=== PATIENT | female | born 1975 | race Caucasian/White ===

== ENCOUNTER 2020-09-26 01:23 | Emergency (ER) | payer BC ==
[~2020-09-26] VITALS: Ht 134.6 cm; Wt 113.6 kg
[~2020-09-26 01:23] MED LIST: ALBU2.5V8 INH; BENZ100C PO; FAMO-63 PO; HYDR-3164 PO; MAG355OR11 PO; NAPR-683 PO; ONDA4TAB7 PO; PRED50TA PO; VENTOLIN HFA18 GM INH
[2020-09-26] MEDS ORDERED: LIDO:MAALOX 1:1 20 ML SINGLE DOSE. SWSW ONE (02:00)
[2020-09-26 02:35] LABS: BARBITURATES NEG (NEG); BENZODIAZEPINES NEG (NEG); CANNABINOIDS NEG (NEG); COCAINE NEG (NEG); METHADONE NEG (NEG); OPIATES NEG (NEG); PHENCYCLIDINE NEG (NEG)
[2020-09-26 02:53] LABS: AMPHETAMINE/METHAMPHETAMINE NEG (NEG)
[2020-09-26 02:58] LABS: BASO % 1 % (0-3); EOS % 1 % (0-3); HEMATOCRIT 32.6 % (36.0-47.0); HEMOGLOBIN 10.5 g/dL (12.0-15.5); LYMPH # 1.4 x10^3/uL (1.0-4.8); LYMPH % 20 % (24-48); MEAN CORPUSCULAR HEMOGLOBIN 25 pg (25-35); MEAN CORPUSCULAR HGB CONC 32 g/dL (31-37); MEAN CORPUSCULAR VOLUME 76 fL (79-100); MONO # 0.6 x10^3/uL (0.0-1.1); MONO % 8 % (0-9); NEUT # 4.9 x10^3/uL (1.8-7.7); NEUT % 71 % (31-73); PLATELET COUNT 318 x10^3/uL (140-400); RED BLOOD COUNT 4.28 x10^6/uL (3.50-5.40); WHITE BLOOD COUNT 6.9 x10^3/uL (4.0-11.0)
--- NOTE | 2020-09-26 03:12 | RAD ---
Single view chest dated 09/26/2020. Comparison made to 11/29/2018. Clinical data indication: Heartburn. FINDINGS: Single upright portable exam performed. Heart and mediastinal contours are stable. There is some mild prominent reticular nodular markings at the perihilar regions, somewhat stable. No consolidation or pleural effusion. No pneumothorax. IMPRESSION: 1. No acute radiographic abnormality. Stable findings compared to November 29, 2018. Electronically signed by: Evin Batista MD (09/26/2020 3:10 AM) JARON
[2020-09-26 03:13] LABS: PREG TEST PT QUAL NEGATIVE (NEG)
[2020-09-26 03:14] LABS: CALCIUM 8.6 mg/dL (8.5-10.1); CREATININE 0.7 mg/dL (0.6-1.0); GFR 90.1; POTASSIUM 3.9 mmol/L (3.5-5.1)
[2020-09-26 03:20] LABS: ALBUMIN 3.2 g/dL (3.4-5.0); ALBUMIN/GLOBULIN RATIO 0.9 (1.0-1.7); TOTAL BILIRUBIN 0.2 mg/dL (0.2-1.0); TOTAL PROTEIN 6.6 g/dL (6.4-8.2)
--- NOTE | 2020-09-26 03:23 | EKG ---
[facility] [address] [place] [address] Test Date: 2020-09-26 Test Time: 01:36:56 Pat Name: SANDRA BOO Department: Room: Gender: F Motor Boss: : 1975 Requested By: JARRETT SLAUGHTER Order Number: [id number] Reading MD: Measurements Intervals [place] Rate: 74 P: 34 NE: 148 QRS: 28 QRSD: 84 T: 26 QT: 386 QTc: 434 Interpretive Statements SINUS RHYTHM NO SPECIFIC ECG ABNORMALITIES RI6.01 No previous ECG available for comparison
--- NOTE | 2020-09-26 03:43 | PHYS DOC ---
Past Medical History Past Medical History: Anemia, Asthma, GERD Additional Past Medical Histor: COVID 19 Past Surgical History: , Other Additional Past Surgical Histo: Pt. poor historian, reports having gallbladder out, unsure of appendix Smoking Status: Never Smoker Alcohol Use: None Drug Use: None General Adult EDM: Chief Complaint: CHEST PAIN HPI: HPI: 45-year-old female past medical history significant for hypertension, Covid (headache and fever), with recent diagnosis of anemia and hyperlipidemia 1 week ago with primary care physician ([facility]-no new medications), presents to the ED with complaints of "acid burning pain," that moves from the top of her stomach up to her throat stating she needs to clear her throat and when she does this feels as if she has some shortness of breath. Patient states symptoms started around 11 PM, last meal was chicken around 5 PM. States she has the symptoms approximately two times per year starting in 2018 and states "whenever I come here," she gets medicine for "heartburn." Patient unsure what this medication is. No known history of GI bleed, no history of EGD. [place] Denies any alcohol or drug use. Denies any past surgical history but then states "vesicula" surgery (points to scar in upper abdomen). Daughter present in ED and is translating for patient who was offered but declined meteorological equipment repairer services. Patient's last bowel movement was around 1 PM today, reports green in color. Denies any new medications. Is not on any anticoagulants. No personal or family history of aortic aneurysms or dissections, cardiac arrhythmias, CAD, sudden or unexplainable (under 50 years of age), or clotting disorders. Review of Systems: Review of Systems: Constitutional: Denies fever or chills. [] Eyes: Denies change in visual acuity. [] HENT: Denies nasal congestion or sore throat. [] Respiratory: Denies cough or shortness of breath. [] Cardiovascular: Denies chest pain or edema. [] GI: Denies abdominal pain, nausea, vomiting, bloody stools or diarrhea. [] : Denies dysuria. [] Musculoskeletal: Denies back pain or joint pain. [] Integument: Denies rash. [] Neurologic: Denies headache, focal weakness or sensory changes. [] Endocrine: Denies polyuria or polydipsia. [] Lymphatic: Denies swollen glands. [] Psychiatric: Denies depression or anxiety. [] Heart Score: C/O Chest Pain: Yes HEART Score for Chest Pain: HEART Score for Chest Pain Response (Comments) Value History Slighlty/Non-Suspicious 0 ECG Normal 0 Age >45 - < 65 1 Risk Factors >3 Risk Factors or Hx CAD 2 Troponin < Normal Limit 0 Total 3 Risk Factors: Risk Factors: DM, Current or recent (<one month) smoker, HTN, HLP, family history of CAD, obesity. Risk Scores: Score 0 - 3: 2.5% MACE over next 6 weeks - Discharge Home Score 4 - 6: 20.3% MACE over next 6 weeks - Admit for Clinical Observation Score 7 - 10: 72.7% MACE over next 6 weeks - Early Invasive Strategies Current Medications: Current Medications Medications (Trade) Dose Ordered Sig/Anamika Start Time Stop Time Status Last Admin Dose Admin Multi-Ingredient Mouthwash/Gargle (Gi Cocktail) 20 ml 1X ONCE 09/26/20 02:00 09/26/20 02:01 DC 09/26/20 02:26 20 ML Allergies: Allergies: Allergies Coded Allergies Type Severity Reaction Last Updated Verified No Known Drug Allergies 10/07/19 No Physical Exam: PE: Constitutional: Well developed, well nourished, no acute distress-calm, non- toxic appearance. HENT: Normocephalic, atraumatic, Eyes: EOMI, conjunctiva normal, no discharge. Neck: Normal range of motion, supple, Cardiovascular: S1/2 present, regular rhythm Lungs & Thorax: Speaking in full sentences, bilateral equal chest rise, no tachypnea or increased work of breathing Abdomen: soft, obese, no tenderness, no reproducible pain, no Guadarrama sign, no rigidity or guarding, no peritonitis, no pain McBurney's point, no Rovsing, 2cm epigastric scar (moved in location due to habitus?-suspect cholecystectomy) Skin: Warm, dry, no erythema, no rash. [] Back: No tenderness, no CVA tenderness. [] Extremities: No tenderness, no cyanosis, no lower extremity edema Neurologic: Alert and oriented X 3, normal motor function, normal sensory function, no focal deficits noted. [] Psychologic: Affect normal, judgement normal, mood normal. [] Current Patient Data: Labs: Laboratory Tests Test 09/26/20 02:10 09/26/20 02:22 09/26/20 02:43 Urine Opiates Screen Neg (NEG) Urine Methadone Screen Neg (NEG) Urine Barbiturates Neg (NEG) Urine Phencyclidine Screen Neg (NEG) Urine Amphetamine/Methamphetamine Neg (NEG) Urine Benzodiazepines Screen Neg (NEG) Urine Cocaine Screen Neg (NEG) Urine Cannabinoids Screen Neg (NEG) Urine Ethyl Alcohol Neg (NEG) POC Urine HCG, Qualitative Hcg negative (Negative) White Blood Count 6.9 x10^3/uL (4.0-11.0) Red Blood Count 4.28 x10^6/uL (3.50-5.40) Hemoglobin 10.5 g/dL (12.0-15.5) L Hematocrit 32.6 % (36.0-47.0) L Mean Corpuscular Volume 76 fL (79-100) L Mean Corpuscular Hemoglobin 25 pg (25-35) Mean Corpuscular Hemoglobin Concent 32 g/dL (31-37) Red Cell Distribution Width 19.0 % (11.5-14.5) H Platelet Count 318 x10^3/uL (140-400) Neutrophils (%) (Auto) 71 % (31-73) Lymphocytes (%) (Auto) 20 % (24-48) L Monocytes (%) (Auto) 8 % (0-9) Eosinophils (%) (Auto) 1 % (0-3) Basophils (%) (Auto) 1 % (0-3) Neutrophils # (Auto) 4.9 x10^3/uL (1.8-7.7) Lymphocytes # (Auto) 1.4 x10^3/uL (1.0-4.8) Monocytes # (Auto) 0.6 x10^3/uL (0.0-1.1) Eosinophils # (Auto) 0.0 x10^3/uL (0.0-0.7) Basophils # (Auto) 0.0 x10^3/uL (0.0-0.2) Sodium Level 144 mmol/L (136-145) Potassium Level 3.9 mmol/L (3.5-5.1) Chloride Level 108 mmol/L (98-107) H Carbon Dioxide Level 27 mmol/L (21-32) Anion Gap 9 (6-14) Blood Urea Nitrogen 16 mg/dL (7-20) Creatinine 0.7 mg/dL (0.6-1.0) Estimated GFR (Cockcroft-Gault) 90.1 BUN/Creatinine Ratio 23 (6-20) H Glucose Level 111 mg/dL (70-99) H Calcium Level 8.6 mg/dL (8.5-10.1) Total Bilirubin 0.2 mg/dL (0.2-1.0) Aspartate Amino Transferase (AST) 15 U/L (15-37) Alanine Aminotransferase (ALT) 20 U/L (14-59) Alkaline Phosphatase 72 U/L (46-116) Troponin I Quantitative < 0.017 ng/mL (0.000-0.055) PV-Hjn-V-Type Natriuretic Peptide 23 pg/mL (0-124) Total Protein 6.6 g/dL (6.4-8.2) Albumin 3.2 g/dL (3.4-5.0) L Albumin/Globulin Ratio 0.9 (1.0-1.7) L Serum Test, Qualitative Negative (NEG) Laboratory Tests 09/26/20 02:43 Laboratory Tests 09/26/20 02:43 Vital Signs: Vital Signs Date Time Temp Pulse Resp B/P (MAP) Pulse Ox O2 Delivery O2 Flow Rate FiO2 09/26/20 02:10 98.2 89 16 138/77 (97) 99 Room Air 98.2 EKG: EKG: Sinus rhythm at 74 bpm, no axis deviation, normal intervals, S1Q3T3 present, no ST elevations or ST depressions Radiology/Procedures: Radiology/Procedures: IMAGING REPORT Signed PATIENT: SANDRA BOO ACCOUNT: [id number] : 1975 LOCATION: ER AGE: 45 SEX: F EXAM STATUS: PRE ER ORD. PHYSICIAN: JARRETT SLAUGHTER DO REASON: heartburn? er#16 PROCEDURE: PORTABLE CHEST 1V Single view chest dated 09/26/2020. Comparison made to 11/29/2018. Clinical data indication: Heartburn. FINDINGS: Single upright portable exam performed. Heart and mediastinal contours are stable. There is some mild prominent reticular nodular markings at the perihilar regions, somewhat stable. No consolidation or pleural effusion. No pneumothorax. IMPRESSION: 1. No acute radiographic abnormality. Stable findings compared to November 29, 2018. Electronically signed by: Evin Batista MD (09/26/2020 3:10 AM) [facility] – [place] DICTATED and SIGNED BY: EVIN BATISTA MD DATE: 09/26/20 [id number] Impression: PERC rule for pulmonary embolus 0 criteria No need for further workup, as <2% chance of PE. If no criteria are positive and clinicians pre-test probability is <15%, PERC Rule criteria are satisfied (covid was 08/2019 > 1 year ago) Course & Med Decision Making: Course & Med Decision Making Pertinent Labs and Imaging studies reviewed. (See chart for details) Concern for atypical chest pain, suspect gastritis. EMR was reviewed and patient was last seen in ED for this in 2018. Patient low risk for mace, 2 troponins negative, D-dimer within normal limits. BP in normal limits w/no end organ damage. CXR with normal contours, stable, no acute process. Patient is calm with improvement in symptoms after GI cocktail. Patient is in no distress. Will discharge home with strict ED return precautions were given for syncope, severe or sudden onset chest pain or back pain, hemoptysis, neurologic deficits, vomiting blood or black stools. Encouraged urgent outpatient follow-up with PMD and cardiology and GI for nonemergent outpatient evaluations. Life-threatening processes were considered but are low suspicion at this time, given history, physical exam and ED workup. Pt was educated on all prescription medications and adverse effects. All patient's questions were answered and pt was stable at time of discharge. Life/limb-threatening differential includes but is not limited to, acute myocardial infarction, aortic dissection, congestive heart failure, esophageal injury including rupture, surgical abdomen, arrhythmia, cardiomyopathy, myocarditis, pericarditis, peptic ulcer disease, pneumomediastinum, pneumonia, pneumothorax, pulmonary embolus, unstable angina, rib fracture, contusion, pericardial tamponade or effusion, traumatic injury including mediastinal hemorrhage or hematoma, or pulmonary contusion. I spoken with the patient and her caregivers. I explained the patient's condition, diagnoses and treatment plan based on the information available to me at this time. I have answered the patient and her caregiver's questions and addressed any concerns. The patient and her caregivers have a good understanding of patient's diagnosis, condition and treatment plan as can be expected at this point. Vital signs have been stable. Patient's condition is stable and appropriate for discharge from the emergency department. Patient will pursue further outpatient evaluation with primary care physician or other designated or consulting physician as outlined in the discharge instructions. The patient and/or caregivers are agreeable to this plan of care and follow-up instructions have been explained in detail. The patient and/or caregivers have received these instructions in written form and have expressed an understanding of the discharge instructions. The patient and/or caregivers are aware that any significant change of condition or worsening of symptoms should prompt immediate return to this or the closest emergency department or call to 1. Sandy Disclaimer: [employer] Disclaimer: This electronic medical record was generated, in whole or in part, using a voice recognition dictation system. Departure Departure Impression: Primary Impression: Atypical chest pain Disposition: HOME / SELF CARE / HOMELESS Condition: STABLE Referrals: UNKNOWN PCP NAME (PCP) you pcp in 24- 48 hours OR FOLLOW UP WITH FAMILY MEDICINE: Family Medicine Address: [address] [facility] [address] [place] [address] Patient Instructions: Chest Pain (Nonspecific), Gastritis, Adult Additional Instructions: FOLLOW UP WITH CARDIOLOGY: For nonemergent outpatient cardiology evaluation [facility] Address: [address] [address] AND FOLLOW UP WITH GASTROENTEROLOGY: For EGD and evaluation for gastritis Gastroenterology [facility] Address: [address] [place] [address] EMERGENCY DEPARTMENT GENERAL DISCHARGE INSTRUCTIONS Thank you for coming to [facility] Emergency Department (ED) today and trusting us with you care. We trust that you had a positive experience in our Emergency Department. If you wish to speak to the department management, you may call the Director at [phone]. YOUR FOLLOW UP INSTRUCTIONS ARE FOLLOWS: 1. Do you have a private Doctor? If you do not have a private doctor, please ask for a resource list of physicians or clinics that may be able to assist you with follow up care. 2. The Emergency Physicain has interpreted your x-rays. The X-Ray specialist will also review them. If there is a change in the findings, you will be notified in 48 hours when at all possible. 3. A lab test or culture has been done, your results will be reviewed and you will be notified if you need a change in treatment. ADDITIONAL INSTRUCTIONS AND INFORMATION: 1. Your care today has been supervised by a physician who is specially trained in emergency care. Many problems require more than one evaluation for a complete diagnosis and treatment. We recommend that you schedule your follow up appointment as recommended to ensure complete treatment of you illness or injury. If you are unable to obtain follow up care and continue to have a problem, or if your condition worsens, we recommend that you return to the ED. 2. We are not able to safely determine your condition over the phone nor are we able to give sound medical advice over the phone. For these safety reasons, if you call for medical advice we will ask you to come to the ED for further evaluation. 3. If you have any questions regarding these discharge instructions please call the ED at [phone]. SAFETY INFORMATION: In the interest of safety, wellness, and injury prevention; we encourage you to wear your sealbelt, if you smoke; quite smoking, and we encourage family to use a protective helmet for bicycling and other sporting events that present an increased risk for head injury. IF YOUR SYMPTOMS WORSEN OR NEW SYMPTOMS DEVELOP, OR YOU HAVE CONCERNS ABOUT YOUR CONDITION; OR IF YOUR CONDITION WORSENS WHILE YOU ARE WAITING FOR YOUR FOLLOW UP APPOINTMENT; EITHER CONTACT YOUR PRIMARY CARE DOCTOR, THE PHYSICIAN WHOSE NAME AND NUMBER YOU WERE GIVEN, OR RETURN TO THE ED IMMEDIATELY. Scripts Famotidine (PEPCID) 20 Mg Tablet 20 MG PO BID, #30 TAB Prov: JARRETT SLAUGHTER DO 09/26/20 JARRETT SLAUGHTER DO Sep 26, 2020 03:43
[2020-09-26] MEDS ORDERED: FAMO-63 PO (05:03)
[2020-09-26 06:09] VITALS: BP 145/66
== END 2020-09-26 06:12 | disposition home or self-care (01) ==
LOC: ER 01:23
DX: R07.89 Other chest pain (principal); R06.02 Shortness of breath; R50.9 Fever, unspecified; D64.9 Anemia, unspecified; K21.9 Gastro-esophageal reflux disease without esophagitis; J45.909 Unspecified asthma, uncomplicated; Z98.890 Other specified postprocedural states
CPT/HCPCS: 36415; 71045; 80053; 80307; 81025; 83880; 84484; 84703; 85025; 85379; 93005; 99285

== ENCOUNTER 2021-06-15 21:15 | Emergency (ER) | payer SELFPAY ==
[~2021-06-15] VITALS: Ht 149.9 cm; Wt 113.6 kg
[2021-06-15 21:45] VITALS: BP 133/66
[2021-06-15] MEDS ORDERED: PRED20TA PO (22:29)
[2021-06-15] MEDS ORDERED: FAMO-63 PO (22:29)
--- NOTE | 2021-06-15 22:29 | PHYS DOC ---
Past Medical History Past Medical History: Anemia, Asthma, GERD Additional Past Medical Histor: COVID 19 pneumonia Past Surgical History: , Other Additional Past Surgical Histo: Pt. salvador historian, reports having gallbladder out, unsure of appendix Smoking Status: Never Smoker Alcohol Use: None Drug Use: None General Adult EDM: Chief Complaint: ALLERGIC REACTION HPI: HPI: Ms. Pinon is a 46 yo female with PMH of HTN currently on lisinopril who presents to the ED for allergic reaction. Patient's daughter was in the room acting as a political science instructor from [place] to [place]. Patient states at that around 6pm she was eating dinner and 20 minutes later she started developing hives and a swollen upper lip along with rashes in the forearm and chest region. As time progressed the hives increased in size and she experienced difficulty breathing. To alleviate her symptoms, she took one Benadryl pill around 8pm with improvement of her breathing symptoms. In addition, patient is a residential user of lisinopril and has never experienced any side effects as a result of the medication. Review of Systems: Review of Systems: Constitutional: Denies fever or chills Eyes: Denies redness or eye pain HENT: Denies nasal congestion or sore throat Respiratory: Denies cough, endorsing difficulty breathing Cardiovascular: Denies chest pain or palpitations GI: Denies abdominal pain, nausea, or vomiting : Denies dysuria or hematuria Musculoskeletal: Denies back pain or joint pain Integument: Endorses rash or skin lesions including hives Neurologic: Denies headache, focal weakness or sensory changes Complete systems were reviewed and found to be within normal limits, except as documented in this note. Heart Score: C/O Chest Pain: N/A Current Medications: Current Medications Medications (Trade) Dose Ordered Sig/Anamika Start Time Stop Time Status Last Admin Dose Admin Dexamethasone Sodium Phosphate (Decadron) 10 mg 1X ONCE 06/15/21 23:00 06/15/21 23:01 Diphenhydramine HCl (Benadryl) 25 mg 1X ONCE 06/15/21 23:00 06/15/21 23:01 Famotidine (Pepcid) 20 mg 1X ONCE 06/15/21 23:00 06/15/21 23:01 Allergies: Allergies: Allergies Coded Allergies Type Severity Reaction Last Updated Verified No Known Drug Allergies 5/5/20 No Physical Exam: PE: Constitutional: Well developed, well nourished, no acute distress, non-toxic appearance HENT: Normocephalic, atraumatic, edematous upper lip Eyes: PERRL, EOMI, conjunctiva normal, no discharge Neck: Normal range of motion, no tenderness, supple Lungs & Thorax: No respiratory distress, equal chest rise and fall, CTAB Abdomen: Soft, no tenderness Skin: Warm, rash and hives present in the neck region, rash present in forearm region Back: No tenderness, no CVA tenderness Extremities: No tenderness, ROM intact, no edema Neurologic: Alert and oriented X 3, normal motor function, normal sensory function, no focal deficits noted Psychologic: Affect normal, judgment normal Current Patient Data: Vital Signs: Vital Signs Date Time Temp Pulse Resp B/P (MAP) Pulse Ox O2 Delivery O2 Flow Rate FiO2 06/15/21 21:45 98.2 77 18 133/66 (88) 97 Room Air 98.2 EKG: EKG: [] Radiology/Procedures: Radiology/Procedures: [] Course & Med Decision Making: Course & Med Decision Making Ms. Pinon is a 46 yo female with PMH of HTN currently on lisinopril who presented to the ED for allergic reaction. Upon further examination, patient did not seem in any imminent danger of anaphylactic shock or hypoventilation. Ultimately, patient was prescribed pepcid (1 dose given in the ER) and two follow up doses at home. In addition patient was given one dose dexamethasone to reduce the inflammation. Patient can continue using benadryl for symptomatic improvement. Patient stable for discharge with outpatient follow-up with PCP. Discussed findings and plan with patient, who acknowledges understanding and agreement. Sandy Disclaimer: Sandy Disclaimer: This electronic medical record was generated, in whole or in part, using a voice recognition dictation system. Departure Departure Impression: Primary Impression: Allergic reaction Qualified Codes: T78.40XA - Allergy, unspecified, initial encounter Disposition: HOME / SELF CARE / HOMELESS Condition: STABLE Referrals: UNKNOWN PCP NAME (PCP) Patient Instructions: Food Allergy and Anaphylaxis, Hives, [id number] Additional Instructions: Continue to use Benadryl 1 to 2 tablets (25-50 mg) every 6 hours as needed for rash, itching, or swelling. Scripts Famotidine (PEPCID) 20 Mg Tablet 20 MG PO BID for 5 Days, #10 TAB Prov: UZMA LOBATO DO 06/15/21 Prednisone (PREDNISONE) 20 Mg Tablet 2 TAB PO DAILY for 4 Days, #8 TAB Start this prescription tomorrow, 06/16/21 Prov: UZMA LOBATO DO 06/15/21 UZMA LOBATO DO Jun 15, 2021 22:29
[2021-06-15] MEDS ORDERED: FAMOTIDINE 20 MG TABLET. PO ONE (23:00)
[2021-06-15] MEDS ORDERED: diphenhydrAMINE HCL 25 MG CAPSULE PO ONE (23:00)
[2021-06-15] MEDS ORDERED: DEXAMETHASONE SOD PHOS 20 MG/5 ML VIAL. IM ONE (23:00)
== END 2021-06-15 22:35 | disposition home or self-care (01) ==
LOC: ER 21:15
DX: T78.40XA Allergy, unspecified, initial encounter (principal); J45.909 Unspecified asthma, uncomplicated; K21.9 Gastro-esophageal reflux disease without esophagitis
CPT/HCPCS: 96372; 99283; J1100; Q0163